=== PATIENT | female | born 1975 | race Caucasian/White ===

== ENCOUNTER 2021-08-12 08:41 | Emergency (ER) | payer OTHER ==
--- NOTE | 2021-08-12 09:24 | ERPHSYRPT ---
- History of Present Illness Time Seen by Provider: 08/12/21 08:50 Historian: patient Exam Limitations: no limitations Patient Subjective Stated Complaint: ABD PAIN SINCE THURSDAY. WENT TO [facility] ON THU. STATES THEY TESTED HER URINE AND NO UTI. FELT SOMEWHAT BETTER ON THURSDAY, WOKE UP TODAY WITH ACHING PAIN RADIATING TO BACK. 11/17 Triage Nursing Assessment: ALERT AND ORIENTED. ABLE TO AMBULATE TO BR AND TO ROOM PER SELF. PT APPEARS FATIQUED. SKIN WDP. GUARDING ABD. Physician History: Patient is a 46-year-old female presents to emergency department for evaluation of abdominal pain x4 days. Pain described as an ache that is primarily periumbilical radiates towards her back and scapula. No trauma. No fever. P sabrinaient went to a quick care on Thursday. She obtained a urinalysis which was reportedly negative. Patient felt somewhat better the following day however today she complains of recurrence of symptoms. No trauma. No fever. No urinary symptomology. Patient denies vaginal discharge. Patient denies a history of the same. Patient otherwise healthy. She takes no medications. Patient voices no other complaints concerns at this time. Timing/Duration: day(s) (4 days ago) Activities at Onset: none Quality: aching Abdominal Pain Onset Location: periumbilical, other (Lower abdomen) Pain Radiation: back Severity of Pain-Max: moderate Severity of Pain-Current: mild Modifying Factors: Improves With: nothing Associated Symptoms: denies symptoms, No diarrhea, No nausea, No neck pain, No shortness of breath, No syncope, No vomiting, No weakness Previous symptoms: no prior history Allergies/Adverse Reactions: No Known Drug Allergies Allergy (Unverified 08/12/21 09:06) Home Medications: Dextroamphetamine/Amphetamine [Adderall 10 mg Tablet] 10 mg PO DAILY 08/12/21 [History] Venlafaxine HCl [Effexor Xr] 75 mg PO DAILY 08/12/21 [History] Hx Tetanus, Diphtheria Vaccination/Date Given: No Hx Influenza Vaccination/Date Given: Yes Hx Pneumococcal Vaccination/Date Given: No Immunizations Up to Date: Yes Travel Risk - International Travel Have you traveled outside of the country in past 3 weeks: No - Coronavirus Screening Are you exhibiting any of the following symptoms?: No - Vaccine Status Have you recieved a Covid-19 vaccination: Yes Template Maker: Pfizer - Vaccination Dates Date of 2cond Vaccination (if applicable): UNK - Review of Systems Constitutional: No Symptoms, No Fever, No Chills Eyes: No Symptoms Ears, Nose, & Throat: No Symptoms Respiratory: No Symptoms, No Cough, No Dyspnea Cardiac: No Symptoms, No Chest Pain, No Edema, No Syncope Abdominal/Gastrointestinal: No Symptoms, No Abdominal Pain, No Nausea, No Vomiting, No Diarrhea Genitourinary Symptoms: No Symptoms, No Dysuria Musculoskeletal: No Symptoms, No Back Pain, No Neck Pain Skin: No Symptoms, No Rash Neurological: No Symptoms, No Dizziness, No Focal Weakness, No Sensory Changes Psychological: No Symptoms Endocrine: No Symptoms Hematologic/Lymphatic: No Symptoms Immunological/Allergic: No Symptoms All Other Systems: Reviewed and Negative - Past Medical History Pertinent Past Medical History: Yes Neurological History: No Pertinent History ENT History: No Pertinent History Cardiac History: No Pertinent History Respiratory History: No Pertinent History Endocrine Medical History: No Pertinent History Musculoskeletal History: No Pertinent History GI Medical History: No Pertinent History History: No Pertinent History Female Reproductive Disorders: No Pertinent History - Past Surgical History Past Surgical History: No Other Surgical History: SPOT REMOVED FROM LEFT BREAST 1998, UNDERSEDATION. - Social History Smoking Status: Never smoker Exposure to second hand smoke: Yes Drug Use: none Patient Lives Alone: Yes - Female History Hx Now: No - Nursing Vital Signs Nursing Vital Signs: Initial Vital Signs Pulse Rate 100 H 08/12/21 08:42 Respiratory Rate 20 08/12/21 08:42 Blood Pressure 146/83 08/12/21 08:42 O2 Sat by Pulse Oximetry 100 08/12/21 08:42 Pain Scale Pain Intensity 7 - Physical Exam General Appearance: no apparent distress, alert Eye Exam: PERRL/EOMI, eyes nml inspection Ears, Nose, Throat Exam: normal ENT inspection, pharynx normal, moist mucous membranes Neck Exam: normal inspection, non-tender, supple, full range of motion Respiratory Exam: normal breath sounds, lungs clear, airway intact, No respiratory distress Cardiovascular Exam: regular rate/rhythm, normal heart sounds, normal peripheral pulses Gastrointestinal/Abdomen Exam: soft, normal bowel sounds, No tenderness, No mass Back Exam: normal inspection, normal range of motion, No CVA tenderness, No vertebral tenderness Extremity Exam: normal inspection, normal range of motion, pelvis stable Neurologic Exam: alert, oriented x 3, cooperative, hazardous waste remover II-XII nml as tested, normal mood/affect, nml cerebellar function, sensation nml, No motor deficits Skin Exam: normal color, warm, dry Lymphatic Exam: adenopathy SpO2 Interpretation: normal SpO2: 100 O2 Delivery: Room Air - Course Nursing assessment & vital signs reviewed: Yes Ordered Tests: Active Orders 24 hr Category Date Time Status IV Insertion STAT Care 08/12/21 09:29 Active ABDOMEN AND PELVIS W CONTRAST [CT] Stat Exams 08/12/21 11:22 Completed BMP Stat Lab 08/12/21 12:25 Completed CBC W DIFF Stat Lab 08/12/21 10:00 Completed CMP Stat Lab 08/12/21 10:00 Completed CULTURE,URINE Stat Lab 08/12/21 09:29 Received LIPASE Stat Lab 08/12/21 10:00 Completed TROPONIN Q3H Lab 08/12/21 10:00 Completed TROPONIN Q3H Lab 08/12/21 12:25 Completed TROPONIN Q3H Lab 08/12/21 15:30 Ordered TROPONIN Q3H Lab 08/12/21 18:30 Ordered TROPONIN Q3H Lab 08/12/21 21:30 Ordered TSH, 3RD Generation Stat Lab 08/12/21 12:25 Completed Medication Summary Generic Name Dose Route Start Last Admin Trade Name Freq PRN Reason Stop Dose Admin Sodium Chloride 1,000 mls @ 100 mls/hr 08/12/21 09:30 08/12/21 09:50 Sodium Chloride 0.9% 1000 Ml IV 09/11/21 09:29 100 mls/hr .Q10H KELLY Administration Discontinued Medications Generic Name Dose Route Start Last Admin Trade Name Freq PRN Reason Stop Dose Admin Nitrofurantoin Macrocrystals 100 mg 08/12/21 11:58 08/12/21 12:05 Nitrofurantoin Macro 100 Mg Capsule PO 08/12/21 11:59 100 mg STAT ONE Administration Nitrofurantoin Macrocrystals Confirm 08/12/21 12:02 Nitrofurantoin Macro 100 Mg Capsule Administered 08/12/21 12:03 Dose 100 mg .[address]TE [facility] ONE Lab/Rad Data: Laboratory Result Diagrams 08/12/21 10:00 08/12/21 12:25 Laboratory Results 08/12/21 08/12/21 08/12/21 Range/Units 12:25 12:25 10:00 WBC (4.0-10.5) K/mm3 RBC (4.1-5.4) M/mm3 Hgb (12.0-16.0) gm/dl Hct (35-47) % MCV (78-100) fl MCH (26-32) pg MCHC (32-36) g/dl RDW (11.5-14.0) % Plt Count (150-450) K/mm3 MPV (7.5-11.0) fl Gran % (36.0-66.0) % Eos # (Auto) (0-0.5) Absolute Lymphs (auto) (1.0-4.6) Absolute Monos (auto) (0.0-1.3) Lymphocytes % (24.0-44.0) % Monocytes % (0.0-12.0) % Eosinophils % (0.00-5.0) % Basophils % (0.0-0.4) % Absolute Granulocytes (1.4-6.9) Basophils # (0-0.4) Sodium 138 (137-145) mmol/L Potassium 4.4 (3.5-5.1) mmol/L Chloride 101 (98-107) mmol/L Carbon Dioxide 30 (22-30) mmol/L Anion Gap 12.2 (5-15) MEQ/L BUN 10 (7-17) mg/dL Creatinine 0.47 L (0.52-1.04) mg/dL Estimated GFR > 60.0 ML/MIN Glucose 103 (74-106) mg/dL Calcium 9.1 (8.4-10.2) mg/dL Total Bilirubin (0.2-1.3) mg/dL AST (14-36) U/L ALT (0-35) U/L Alkaline Phosphatase (38-126) U/L Troponin I < 0.012 0.013 (0.000-0.034) ng/mL Serum Total Protein (6.3-8.2) g/dL Albumin (3.5-5.0) g/dL Lipase (23-300) U/L TSH 3rd Generation 2.050 (0.47-4.68) mIU/L Urinalys Dipstick Clnc Urine Color (YELLOW) Urine Appearance (CLEAR) Urine pH (5-6) Ur Specific [place] (1.005-1.025) POC Urine Protein Conf (Negative) Urine Ketones (NEGATIVE) Urine Nitrite (NEGATIVE) Urine Bilirubin (NEGATIVE) Urine Urobilinogen (0-1) mg/dL Urine Leukocytes (NEGATIVE) Urine WBC (Auto) (0-5) /HPF Urine RBC (Auto) (0-2) /HPF U Epithel Cells (Auto) (FEW) /HPF Urine Bacteria (Auto) (NEGATIVE) /HPF Urine RBC (0-5) West/ul Urine Yeast (Budding) (NEGATIVE) /HPF Ur Culture Indicated? Urine Glucose (NEGATIVE) mg/dL 08/12/21 08/12/21 08/12/21 Range/Units 10:00 10:00 09:29 WBC 6.9 (4.0-10.5) K/mm3 RBC 4.91 (4.1-5.4) M/mm3 Hgb 14.8 (12.0-16.0) gm/dl Hct 46.7 (35-47) % MCV 95.1 (78-100) fl MCH 30.1 (26-32) pg MCHC 31.7 L (32-36) g/dl RDW 12.0 (11.5-14.0) % Plt Count 302 (150-450) K/mm3 MPV 9.9 (7.5-11.0) fl Gran % 73.1 H (36.0-66.0) % Eos # (Auto) 0.06 (0-0.5) Absolute Lymphs (auto) 1.25 (1.0-4.6) Absolute Monos (auto) 0.52 (0.0-1.3) Lymphocytes % 18.1 L (24.0-44.0) % Monocytes % 7.5 (0.0-12.0) % Eosinophils % 0.9 (0.00-5.0) % Basophils % 0.4 (0.0-0.4) % Absolute Granulocytes 5.05 (1.4-6.9) Basophils # 0.03 (0-0.4) Sodium 139 (137-145) mmol/L Potassium 5.5 H (3.5-5.1) mmol/L Chloride 103 (98-107) mmol/L Carbon Dioxide 25 (22-30) mmol/L Anion Gap 16.4 H (5-15) MEQ/L BUN 13 (7-17) mg/dL Creatinine 0.47 L (0.52-1.04) mg/dL Estimated GFR > 60.0 ML/MIN Glucose 90 (74-106) mg/dL Calcium 9.7 (8.4-10.2) mg/dL Total Bilirubin 0.80 (0.2-1.3) mg/dL AST 44 H (14-36) U/L ALT 22 (0-35) U/L Alkaline Phosphatase 73 (38-126) U/L Troponin I (0.000-0.034) ng/mL Serum Total Protein 8.9 H (6.3-8.2) g/dL Albumin 5.1 H (3.5-5.0) g/dL Lipase 102 (23-300) U/L TSH 3rd Generation (0.47-4.68) mIU/L Urinalys Dipstick Clnc MAIN LAB Urine Color YELLOW (YELLOW) Urine Appearance HAZY (CLEAR) Urine pH 8.5 (5-6) Ur Specific [place] 1.020 (1.005-1.025) POC Urine Protein Conf NEGATIVE (Negative) Urine Ketones NEGATIVE (NEGATIVE) Urine Nitrite NEGATIVE (NEGATIVE) Urine Bilirubin NEGATIVE (NEGATIVE) Urine Urobilinogen 0.2 (0-1) mg/dL Urine Leukocytes 1+ (NEGATIVE) Urine WBC (Auto) 16-25 (0-5) /HPF Urine RBC (Auto) 0-2 (0-2) /HPF U Epithel Cells (Auto) FEW (FEW) /HPF Urine Bacteria (Auto) MODERATE (NEGATIVE) /HPF Urine RBC NEGATIVE (0-5) West/ul Urine Yeast (Budding) Many (NEGATIVE) /HPF Ur Culture Indicated? YES Urine Glucose NEGATIVE (NEGATIVE) mg/dL - Progress Progress: improved Progress Note: Patient reassessed. Patient states she feels well. Patient advised that she is feeling a little weak and experiencing a lack of energy. TSH was ordered and is normal. Potassium was elevated. Patient received IV fluids. Repeat chemistry shows normal potassium at 4.4. CT abdomen pelvis shows fecal stasis. Patient will try [id number] MiraLAX. Urinalysis suggestive of UTI. Patient received a dose of Macrobid in our ED. A prescription for the same was forwarded to patient's pharmacy. Patient agrees to follow-up with her primary care doctor within 48 hours for evaluation. She voices no other complaints or concerns at this time. Portions of this note were created with voice recognition technology. There may be grammatical, spelling, punctuation or sound alike errors 08/12/21 13:14 Counseled pt/family regarding: lab results, diagnosis, need for follow-up, rad results - Departure Departure Disposition: Home Clinical Impression: Abdominal pain, Fecal stasis, Urinary tract infection Condition: Stable Critical Care Time: No Referrals: CRYSTAL STERLING, NURSING SECRETARY [Primary Care Provider] - Follow up/PCP as directed Additional Instructions: Discharge/Care Plan YAHAIRA PHILIPPE was seen on 08/12/21 in the Emergency Room. The patient was counseled regarding Diagnosis,Lab results, Imaging studies, need for follow up and when to return to the Emergency Room. Prescriptions given: Discharge Note I have spoken with the patient and/or caregivers. I have explained the patient's condition, diagnosis and treatment plan based on the information available to me at this time. I have answered the patient's and/or caregiver's questions and addressed any concerns. The patient and/or caregivers have as good understanding of the patient's diagnosis, condition and treatment plan as can be expected at this point. The vital signs have been stable. The patient's condition is stable and appropriate for discharge from the emergency department. The patient will pursue further outpatient evaluation with the primary care physician or other designated or consulting physician as outlined in the discharge instructions. The patient and/or caregivers are agreeable to this plan of care and follow-up instructions have been explained in detail. The patient and/or caregivers have received these instruction. The patient/and or caregivers are aware that any significant change in condition or worsening of symptoms should prompt an immediate return to this or the closest emergency department or call 911. Prescriptions: Nitrofurantoin Macro 100 mg [Macrobid 100MG Capsule] 100 mg PO BID 7 Days #14 cap
[2021-08-12] MEDS ORDERED: Sodium Chloride 0.9% 1000 ML 1,000 ML IV SCH (09:30)
[2021-08-12] MEDS ORDERED: Sodium Chloride 0.9% 1000 ML 1,000 ML ONE (09:48)
[2021-08-12 10:05] LABS: Glucose NEGATIVE (NEGATIVE)
[2021-08-12 10:12] LABS: Appearance HAZY (CLEAR); Bilirubin NEGATIVE (NEGATIVE); Dipstick done @ ? MAIN LAB; Ketones NEGATIVE (NEGATIVE); Nitrite NEGATIVE (NEGATIVE); Ph 8.5 (5-6); Protein,Urine Dip NEGATIVE (Negative); RBC 0-2 /HPF (0-2); RBC NEGATIVE Ery/ul (0-5); Urobilinogen 0.2 mg/dL (0-1)
[2021-08-12 10:13] LABS: Bacteria MODERATE /HPF (NEGATIVE); Budding Yeast Many /HPF (NEGATIVE); Epithelial Cells FEW /HPF (FEW); Urine Cultured Indicated? YES
[2021-08-12 10:37] LABS: Absolute Neutrophil Ct (ANC) 5.05 (1.4-6.9); Basophil (Absolute #) 0.03 (0-0.4); Eosinophil % 0.9 % (0.00-5.0); Eosinophil (Absolute #) 0.06 (0-0.5); Hematocrit 46.7 % (35-47); Hemoglobin 14.8 gm/dl (12.0-16.0); Lymphocyte (Absolute #) 1.25 (1.0-4.6); Lymphocytes % 18.1 % (24.0-44.0); Mean Cell Volume 95.1 fl (78-100); Mean Corpuscular Hemoglobin 30.1 pg (26-32); Mean Corpuscular Hgb Concent. 31.7 g/dl (32-36); Mean Platelet Volume 9.9 fl (7.5-11.0); Monocyte (Absolute #) 0.52 (0.0-1.3); Monocytes % 7.5 % (0.0-12.0); Neutrophil % 73.1 % (36.0-66.0); Platelet Count 302 K/mm3 (150-450); Red Blood Count 4.91 M/mm3 (4.1-5.4); White Blood Count 6.9 K/mm3 (4.0-10.5)
[2021-08-12 10:48] LABS: ALBUMIN 5.1 g/dL (3.5-5.0); ALKALINE PHOSPHATASE 73 U/L (38-126); ANION GAP 16.4 MEQ/L (5-15); BLOOD UREA NITROGEN 13 mg/dL (7-17); CHLORIDE 103 mmol/L (98-107); Calcium 9.7 mg/dL (8.4-10.2); Carbon Dioxide 25 mmol/L (22-30); Creatinine 1 0.47 mg/dL (0.52-1.04); EST GLOMERULAR FILTRATION RATE > 60.0 ML/MIN; Glucose 90 mg/dL (74-106); LIPASE 102 U/L (23-300); SGOT/AST 44 U/L (14-36); SGPT/ALT 22 U/L (0-35); SODIUM 139 mmol/L (137-145); Total Protein 8.9 g/dL (6.3-8.2)
[2021-08-12 10:51] LABS: Potassium 5.5 mmol/L (3.5-5.1)
[2021-08-12 11:41] VITALS: PULSE 71; O2SAT 100
--- NOTE | 2021-08-12 11:52 | XRAY ---
Indication: Abdomen and back pain 4 days. Nausea and weakness. Multiple contiguous axial images obtained through the abdomen and pelvis using 80 cc Isovue 370 contrast. Comparison: None Lung bases are clear. Heart not enlarged. Noncontrasted stomach and bowel loops appear nonobstructed. Normal appendix. There is mild/moderate diffuse scattered colonic fecal debris greatest in right hemicolon. No free fluid/air. Uterus demonstrates IUD in situ. Remaining liver, gallbladder, pancreas, spleen, adrenal glands, kidneys, ureters, bladder, uterus, and aorta are unremarkable. No pathologic retroperitoneal lymphadenopathy. Osseous structures intact. Impression: 1. Diffuse fecal stasis and IUD in situ. 2. Remaining CT abdomen/pelvis with contrast exam is negative.
[2021-08-12] MEDS ORDERED: Macrobid 100MG Capsule PO ONE (11:58)
[2021-08-12] MEDS ORDERED: Macrobid 100MG Capsule ONE (12:02)
[2021-08-12 13:07] LABS: ANION GAP 12.2 MEQ/L (5-15); BLOOD UREA NITROGEN 10 mg/dL (7-17); CHLORIDE 101 mmol/L (98-107); Calcium 9.1 mg/dL (8.4-10.2); Carbon Dioxide 30 mmol/L (22-30); Creatinine 1 0.47 mg/dL (0.52-1.04); EST GLOMERULAR FILTRATION RATE > 60.0 ML/MIN; Glucose 103 mg/dL (74-106); Potassium 4.4 mmol/L (3.5-5.1); SODIUM 138 mmol/L (137-145)
[2021-08-12 13:48] VITALS: BP 138/74
== END 2021-08-12 13:50 | disposition home or self-care (01) ==
LOC: ED 08:41
DX: N39.0 Urinary tract infection, site not specified (principal); K59.89 Other specified functional intestinal disorders; R10.33 Periumbilical pain; R10.30 Lower abdominal pain, unspecified; R53.1 Weakness; Z79.899 Other long term (current) drug therapy
CPT/HCPCS: 36000; 36415; 74177; 80048; 80053; 81015; 83690; 84443; 84484; 85025; 87086; 96360; 99284; A9270-GY